=== PATIENT | female | born 1985 | race Hispanic/Latino ===

== ENCOUNTER 2018-08-24 22:00 | Outpatient (CLI) | payer MEDICAID ==
[2018-08-24] MEDS ORDERED: LACTATED RINGERS 500 ML IV ONE (22:42)
[2018-08-24 23:12] LABS: Bacteria,Urine 1+ /HPF (Negative); Bilirubin,Urine NEG (Negative); Blood,Urine LG (Negative); Color,Urine Yellow (Yellow); Mucus,Urine FEW /HPF; Urobilinogen,Urine < 2.0 mg/dL (<2.0)
[2018-08-24 23:14] LABS: WBC,Urine > 182.0 /HPF (0.0-6.0)
[2018-08-25] MEDS ORDERED: XYLOCAINE 1% MPF 5 mL INFILTRATI ONE (00:26)
[2018-08-25] MEDS ORDERED: ROCEPHIN IM ONE (00:27)
== END 2018-08-25 01:50 | disposition home or self-care (01) ==
LOC: EDSTATUS 22:15 → TRG 22:20
PROVIDERS: ATTEND Obstetrics & Gynecology
DX: O26.892 Other specified pregnancy related conditions, second trimester (principal); R31.9 Hematuria, unspecified; R30.9 Painful micturition, unspecified; O11.2 Pre-existing hypertension with pre-eclampsia, second trimester; O99.332 Smoking (tobacco) complicating pregnancy, second trimester; F17.200 Nicotine dependence, unspecified, uncomplicated; Z3A.21 21 weeks gestation of pregnancy
CPT/HCPCS: 81001; 96372; 96374; J0696; J7120; 59025; 96360

== ENCOUNTER 2018-11-15 12:23 | Outpatient (CLI) | payer MEDICAID ==
[2018-11-15 13:36] LABS: Hematocrit 35.7 % (30.3-42.9); Hemoglobin 12.1 gm/dl (10.1-14.3); Mean Corpuscular HGB Conc 34 % (30-34); Mean Corpuscular Volume 96 fl (79-97); Platelet Count 261 K/mm3 (140-440); Red Blood Count 3.73 M/mm3 (3.65-5.03); Red Cell Distribution Width 12.8 % (13.2-15.2)
[2018-11-15 13:53] LABS: Alanine Aminotransferase 12 units/L (7-56); Uric Acid 4.6 mg/dL (3.5-7.6)
[2018-11-15 14:00] LABS: Bacteria,Urine 1+ /HPF (Negative); Bilirubin,Urine NEG (Negative); Blood,Urine NEG (Negative); Color,Urine Amber (Yellow); Mucus,Urine 3+ /HPF
[2018-11-15] MEDS ORDERED: LACTATED RINGERS 1,000 ML IV ONE (15:00)
[2018-11-15] MEDS ORDERED: TYLENOL PO ONE (15:45)
[2018-11-15 16:00] VITALS: BP 137/61
== END 2018-11-15 16:13 | disposition home or self-care (01) ==
LOC: TRG 12:23
PROVIDERS: ATTEND Obstetrics & Gynecology
DX: O26.893 Other specified pregnancy related conditions, third trimester (principal); R51 Headache; H53.8 Other visual disturbances; O47.03 False labor before 37 completed weeks of gestation, third trimester; O99.343 Other mental disorders complicating pregnancy, third trimester; F32.9 Major depressive disorder, single episode, unspecified; O99.333 Smoking (tobacco) complicating pregnancy, third trimester; F17.200 Nicotine dependence, unspecified, uncomplicated; Z3A.33 33 weeks gestation of pregnancy
CPT/HCPCS: 36415; 59025; 81001; 82565; 83615; 84450; 84460; 84550; 85027; 87076; 87086; 87186; 96360; J7120

== ENCOUNTER 2018-12-14 09:28 | Inpatient (IN) | payer MEDICAID ==
[2018-12-14] MEDS ORDERED: REGLAN IV ONE (10:29)
[2018-12-14] MEDS ORDERED: BICITRA PO ONE (10:29)
[2018-12-14] MEDS ORDERED: PEPCID IV ONE (10:29)
--- NOTE | 2018-12-14 10:49 | Anesthesia Consultation ---
Anesthesia Consult and Med Hx Date of service: 12/14/18 - Airway Anesthetic Teeth Evaluation: Poor, Chipped ROM Head & Neck: Adequate Mental/Hyoid Distance: Adequate Mallampati Class: Class III Intubation Access Assessment: Probably Good - Pulmonary Exam CTA: Yes - Cardiac Exam Cardiac Exam: RRR - Pre-Operative Health Status ASA Pre-Surgery Classification: ASA2 Proposed Anesthetic Plan: Spinal - Pulmonary Hx Smoking: Yes (1-11/2 pk per day since 12 yeras old) Hx Asthma: No Hx Respiratory Symptoms: No SOB: No COPD: No Home Oxygen Therapy: No Hx Pneumonia: No Hx Sleep Apnea: No - Cardiovascular System Hx Hypertension: Yes (2010 patient reported "I was diagnosed with HTN and was preeclamptic) Hx Coronary Artery Disease: No Hx Heart Attack/AMI: No Hx Angina: No Hx Percutaneous Transluminal Coronary Angioplasty (PTCA): No Hx Cardia Arrhythmia: No Hx Pacemaker: No Hx Internal Defibrillator: No Hx Valvular Heart Disease: No Hx Heart Murmur: No Hx Peripheral Vascular Disease: No - Central Nervous System Hx Neuromuscular Disorder: No Hx Seizures: Yes (Pt states "I had two seizures in 2001 and 2015") CVA: No Hx Back Pain: No Hx Psychiatric Problems: Yes (Pt states "15 years ago I was put on Welbutrine and Depakote") - Gastrointestinal Hx Ulcer: No Hx Gastroesophageal Reflux Disease: Yes - Endocrine Hx Renal Disease: No Hx End Stage Renal Disease: No Hx Cirrhosis: No Hx Liver Disease: No Hx Insulin Dependent Diabetes: No Hx Non-Insulin Dependent Diabetes: No Hx Thyroid Disease: No Hx Hypothyroidism: No Hx Hyperthyroidism: No - Hematic Hx Anemia: No Hx Sickle Cell Disease: No - Other Systems Hx Alcohol Use: No (history of drinking alcohol - last year 2017) Hx Substance Use: No Hx Cancer: No Hx Obesity: Yes (BMI 32)
--- NOTE | 2018-12-14 10:50 | Anesthesia Day of Surgery ---
Anesthesia Day of Surgery - Day of Surgery Patient Examined: Yes Patient H&P Reviewed: Yes Patient is NPO: Yes Beta Blockers: No Cardiac Clearance: No Pulmonary Clearance: No Santiago's Test: N/A
[2018-12-14] MEDS ORDERED: PITOCin/NS 20 UNIT/1000ML DRIP 20 UNITS/1,000 ML BAG IV SCH ×2 (11:00→15:00)
[2018-12-14] MEDS ORDERED: ANCEF/STERILE WATER 2 GM/20 ML 2 GM/20 ML SYRINGE IV NR (11:00)
[2018-12-14] MEDS: LACTATED RINGERS 1,000 ML IV SCH ×2 (11:25→11:55)
[2018-12-14 11:38] LABS: Basophils % (Auto) 0.4 % (0.0-1.8); Eosinophils # (Auto) 0.1 K/mm3 (0.0-0.4); Eosinophils % (Auto) 0.8 % (0.0-4.3); Hematocrit 34.9 % (30.3-42.9); Hemoglobin 11.8 gm/dl (10.1-14.3); Lymphocytes # (Auto) 2.2 K/mm3 (1.2-5.4); Lymphocytes % (Auto) 22.5 % (13.4-35.0); Mean Corpuscular HGB Conc 34 % (30-34); Mean Corpuscular Volume 94 fl (79-97); Monocytes # (Auto) 0.5 K/mm3 (0.0-0.8); Monocytes % (Auto) 4.6 % (0.0-7.3); Platelet Count 257 K/mm3 (140-440); Red Blood Count 3.71 M/mm3 (3.65-5.03); Red Cell Distribution Width 12.9 % (13.2-15.2)
--- NOTE | 2018-12-14 11:49 | History and Physical Report ---
History of Present Illness Date of examination: 12/14/18 Date of admission: 12/14/18 09:28 Chief complaint: * Elective Repeat Section, Multiparty desiring Permanent Sterilization, CHTN, Tobacco Dependance * * History of present illness: Preop Note: Preop Dx: IUP at term, elective repeat c/section, multiplarity desiring permanent sterilization, CHTN, Tobacco dependance Planned Procedure: Elective Repeat Low-Transverse Section via Pfannenstiel Incision Surgeon: Hanny Ireland MD. Informed consent obtained in OB triage. well being reassuring overall. H&P reviewed and updated. 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 Vital Signs Temp 97.8 F 12/14/18 11:39 Pulse 82 12/14/18 11:42 Resp 20 12/14/18 11:39 BP 129/66 12/14/18 11:39 Pulse Ox 99 12/14/18 11:42 Intake & Output 12/13/18 12/13/18 12/14/18 11:59 23:59 11:59 Weight 107.048 kg RRR LCTAB ABD: soft, NT, no rebound or guarding. FH 39cm, well healed pfannenstiel incision Ext: no edema, negative Flavio's sign bilaterally Laboratory Results - last 24 hr 12/14/18 11:05 WBC 10.0 RBC 3.71 Hgb 11.8 Hct 34.9 MCV 94 MCH 32 MCHC 34 RDW 12.9 L Plt Count 257 Lymph % (Auto) 22.5 [place] % (Auto) 4.6 Eos % (Auto) 0.8 Baso % (Auto) 0.4 Lymph # 2.2 [place] # 0.5 Eos # 0.1 Baso # 0.0 Seg Neutrophils % 71.7 H Seg Neutrophils # 7.1 Dr Hanny Ireland Past History - Obstetrical History : 2 Medications and Allergies Allergies Allergy/AdvReac Type Severity Reaction Status Date / Time No Known Allergies Allergy Verified 11/15/18 13:01 Home Medications Medication Instructions Recorded Confirmed Last Taken Type No Known Home Medications [No 11/15/18 11/15/18 Unknown History Reported Home Medications] Active Meds: Active Medications Cefazolin Sodium (Ancef/Sterile Water 2 Gm/20 Ml) 2 gm in 20 mls @ 80 mls/hr IV PREOP NR; Protocol Stop: 12/14/18 23:59 Oxytocin/Sodium Chloride (Pitocin/Ns 20 Unit/1000ml Drip) 20 units in 1,000 mls @ 0 mls/hr IV TITR HEMALATHA Lactated Ringer's (Lactated Ringers) 1,000 mls @ 2,250 mls/hr IV PREOP HEMALATHA Stop: 12/15/18 11:27 Last Admin: 12/14/18 11:25 Dose: 2,250 mls/hr Documented by: - Vital Signs Vital signs: Vital Signs Pulse Pulse Ox 85 97 12/14/18 10:17 12/14/18 10:17 Temp Pulse Resp BP Pulse Ox 97.8 F 74 20 129/66 97 12/14/18 11:39 12/14/18 11:39 12/14/18 11:39 12/14/18 11:39 12/14/18 11:39 Results Result Diagrams: 12/14/18 11:05 Abnormal lab results 12/14/18 Range/Units 11:05 RDW 12.9 L (13.2-15.2) % Seg Neutrophils % 71.7 H (40.0-70.0) % All other labs normal.
[2018-12-14] MEDS ORDERED: DEXMEDETOMIDINE IV ONE (12:32)
[2018-12-14] MEDS ORDERED: WATER FOR IRRIG STERILE IR ONE (13:00)
[2018-12-14] MEDS ORDERED: NACL 0.9% IR ONE ×2 (13:00)
[2018-12-14] MEDS ORDERED: TORADOL ONE (13:01)
[2018-12-14] MEDS ORDERED: ZOFRAN ONE (13:01)
[2018-12-14] MEDS ORDERED: KETAMINE 50 MG/ML-WATER SYRING ONE (13:18)
[2018-12-14] MEDS ORDERED: DILAUDID ONE (13:51)
[2018-12-14] MEDS ORDERED: NARCAN 0.4 MG/1 ML IV PRN (14:08)
[2018-12-14] MEDS ORDERED: MYLICON PO PRN (14:08)
[2018-12-14] MEDS ORDERED: TORADOL IV PRN (14:08)
[2018-12-14] MEDS ORDERED: PHENERGAN PR PRN (14:08)
[2018-12-14] MEDS ORDERED: ANUCORT-HC PR PRN (14:08)
[2018-12-14] MEDS ORDERED: ZOFRAN IV PRN (14:08)
[2018-12-14] MEDS ORDERED: MORPHINE IV PRN (14:08)
[2018-12-14] MEDS ORDERED: TUCKS PAD TP PRN (14:08)
[2018-12-14] MEDS ORDERED: LANSINOH TP PRN (14:08)
--- NOTE | 2018-12-14 14:23 | Post Anesthesia Evaluation ---
- Post Anesthesia Evaluation Patient Participated: Yes Airway Patent: Yes Stable Respiratory Function: Yes Nausea/Vomiting: No Temp > 96.8F: Yes Pain Manageable: Yes Adequeate Hydration: Yes Anesthesia Complications: No Block Receding Appropriately: Yes Patient on Ventilator: No
--- NOTE | 2018-12-14 14:23 | Procedure Note ---
OB Delivery Note - Section Preop diagnosis: desires sterilization Postop diagnosis: same section procedure: repeat low transverse, bilateral tubal ligation Disposition: PACU Complications: intra-op hemorrhage Narrative: Preop Diagnosis: ERCS at term, desires permanent sterilization, CHTN, Tobacco Dependence Postop Dx: same Procedure: Low transverse section with mid-uterine "T" extension, Modified [place] Bilateral Tubal Ligation Surgeon: Hanny Ireland MD Assist: Scrub Findings: viable male, Weight 2997gms, 8,9. Normal Uterus, tubas and ovaries bilaterally. Dense Pelvic adhesions noted, Dense uterine scar encountered making delivery of baby in Direct OA position difficult. Uterus was extended in a midline "T" configuration to allow for delivery, Intraoperative Hemorrhage noted second to uterine extension. EBL 1300ml Urine Output 200ml Fluids 1200ml Drains: Sant[place] to [place] Patient hemodynamically Stable to postop, Stat CBC ordered in Postop. Jamel ABEBE
[2018-12-14] MEDS ORDERED: SODIUM CHLORIDE FLUSH SYRINGE 10 ML IV NR (15:00)
[2018-12-14] MEDS ORDERED: D5LR 1,000 ML IV SCH (15:00)
[2018-12-14 15:06] LABS: Basophils # (Auto) 0.1 K/mm3 (0.0-0.1); Basophils % (Auto) 0.4 % (0.0-1.8); Eosinophils # (Auto) 0.1 K/mm3 (0.0-0.4); Eosinophils % (Auto) 0.6 % (0.0-4.3); Hematocrit 32.1 % (30.3-42.9); Hemoglobin 10.6 gm/dl (10.1-14.3); Lymphocytes # (Auto) 2.2 K/mm3 (1.2-5.4); Lymphocytes % (Auto) 15.7 % (13.4-35.0); Mean Corpuscular HGB Conc 33 % (30-34); Mean Corpuscular Volume 95 fl (79-97); Monocytes # (Auto) 0.5 K/mm3 (0.0-0.8); Monocytes % (Auto) 3.6 % (0.0-7.3); Platelet Count 229 K/mm3 (140-440); Red Blood Count 3.39 M/mm3 (3.65-5.03); Red Cell Distribution Width 13.2 % (13.2-15.2)
[2018-12-14] MEDS ORDERED: SENOKOT PO PRN (22:00)
[2018-12-14] MEDS ORDERED: MILK OF MAGNESIA PO PRN (22:00)
[2018-12-14] MEDS: NORCO 5/325 PO PRN (23:05)
[2018-12-14] MEDS: TORADOL IV PRN (23:12)
[2018-12-15 01:25] LABS: Hematocrit 28.1 % (30.3-42.9); Hemoglobin 9.4 gm/dl (10.1-14.3)
--- NOTE | 2018-12-15 06:19 | Operative Report ---
Operative Report Operative Report: Preoperative diagnosis: IUP at 37+ weeks, previous sectionx1, CHTN, Tobacco Dependence, Multiparty Desires Permanent sterilization Postoperative diagnosis: same Procedure: Elective Repeat Low Transverse section via Pfannenstiel incision with a uterine "T" midline extension, Bilateral Modified [place] Tubal Ligation Surgeon: Dr Hanny Ireland Assist: Scrub Anesthesia: Spinal Findings: viable male, 2997gms, 8,9. Normal uterus, tubes and ovaries bilaterally.Dense Pelvic adhesions. Uterine scarring at incision site making delivery of vertex difficult.Uterus was extended in a midline "T" configuration to allow for delivery, Intraoperative Hemorrhage noted second to uterine extension. EBL: 1300ml IV Fluids:1200ml Urine Output:200ml clear urine Complications: Dense abdomino-pelvic adhesions, dense uterine scar making delivery of vertex difficult. Procedure: Patient gave informed consent in OB triage. All questions and concerns addressed. R/B/C reviewed. She was taken to the OR where she received excellent spinal anesthesia. She was placed in the dorsal supine position with a leftward tilt. She was prepped and draped in a sterile fashion. A time out was verified. A pfannenstiel skin incision was made, taken down through the underlying fascia sharply and extended laterally with curved Zapata scissors. The superior and inferior aspect of the fascial incision was grasped with Anuj clamps and the rectus muscles dissected off sharply. The abdomen was entered sharply in the midline and extended laterally and inferiorly sharply with good visualization of the underlying structures. Dense adhesions were noted and taken down sharply. A bladder blade was inserted. The uterine incision was made sharply with a scalpel,noted to be thick scar tissue from previous procedure with little give when blunt extension was attempted. The uterine incision was taken down to the amnion and delivery of the vertex attempted. Encountering resistance, A KIWI was called for and I extended the uterine incision in the midline in a "T" fashion approx. 3 cm extending from the original hysterotomy. The bladder blade removed and the baby delivered atraumatically. No nuchal cord, spontaneous cry at delivery. Cord clamped and cut and baby handed to waiting regulatory affairs spec staff. An intact placenta with three vessel cord delivered manually. The uterus cleared of all clots and debris. The uterus was exteriorized. The uterine incision closed with 3 layers of 0-vicryl with excellent hemostasis. The Uterine Extension closed in two layers of 0- vicryl. The abdomen was irrigated with warm normal saline and the uterus placed back into the abdomen. Procoagulant materials placed on the uterine incision. A second look at the uterine incision assured hemostasis. The peritoneum was closed with 3-0 vicryl, the fascia closed with 0-vicryl in the usual fashion and the subcuticular structures closed with 0-vicryl. The skin closed with sindhu and a pressure dressing applied. All sponge and needle counts correctx2. Mom and baby stable to . EBL 1300ml. Intraoperative CBC sent STAT. Patient remained hemodynamically stable throughout procedure. Jamel ABEBE
[2018-12-15] MEDS: NORCO 5/325 PO PRN ×2 (06:20→15:10)
[2018-12-15] MEDS: TORADOL IV PRN (06:20)
--- NOTE | 2018-12-15 10:46 | Progress Note ---
Assessment and Plan A: /postop day 1 S/P repeat low transverse section with a uterine T midline extension and BTL. Anemia secondary to blood loss and . Chronic hypertension. P: Advance diet to regular as tolerated. Recheck hemoglobin and hematocrit. Iron supplementation. Encouraged ambulation. Subjective - Subjective Date of service: 12/15/18 Principal diagnosis: /postop day 1 S/P repeat C/S Interval history: /postop day 1 S/P repeat low transverse section with a uterine T midline extension and BTL. Chronic hypertension. Patient is ambulating well, voiding without difficulty, tolerating liquid diet, and passing gas. She plans to eat a regular diet for lunch today. Patient reports small amount of lochia and no clots. Patient denies headache, chest pain, cough, shortness of breath, abdominal pain, leg pain, dizziness, nausea or vomiting, or heavy bleeding. Patient reports: appetite normal, voiding normally, pain well controlled, flatus, ambulating normally, no dizzy ambulation, no nauseated : doing well Objective - Vital Signs Latest vital signs: Vital Signs Temp Pulse Resp BP BP Pulse Ox 12/15/18 08:59 97.9 F 18 126/53 12/15/18 08:00 97.3 F L 81 18 126/53 12/15/18 06:20 18 12/15/18 05:12 98.4 F 81 22 134/62 12/15/18 01:26 98.1 F 71 22 133/71 98 12/14/18 23:42 18 12/14/18 23:12 18 12/14/18 23:05 18 12/14/18 20:47 98.4 F 24 116/65 12/14/18 16:01 97.5 F L 60 18 108/57 100 12/14/18 16:00 97.5 F L 68 16 108/57 97 12/14/18 15:30 55 L 11 L 100/57 96 12/14/18 15:15 98.0 F 55 L 12 99/55 95 12/14/18 15:00 59 L 12 103/63 97 12/14/18 14:45 56 L 12 103/58 95 12/14/18 14:30 66 15 119/64 95 12/14/18 14:25 56 L 11 L 103/51 96 12/14/18 14:20 99.3 F 68 13 115/64 97 12/14/18 14:14 99.3 F 70 18 111/65 97 12/14/18 12:22 78 98 12/14/18 12:19 79 94 12/14/18 12:17 85 98 12/14/18 12:12 81 97 12/14/18 12:07 77 98 12/14/18 12:04 77 130/77 12/14/18 12:02 74 99 12/14/18 11:57 86 97 12/14/18 11:52 76 97 12/14/18 11:50 75 131/65 12/14/18 11:47 75 98 12/14/18 11:42 82 99 12/14/18 11:39 97.8 F 74 20 129/66 97 12/14/18 11:37 88 98 12/14/18 11:35 80 129/66 12/14/18 11:32 80 98 12/14/18 11:27 76 97 12/14/18 11:22 87 98 12/14/18 11:19 79 134/91 12/14/18 11:17 85 98 12/14/18 11:12 80 97 12/14/18 11:07 87 97 12/14/18 11:04 80 124/64 12/14/18 11:02 84 97 12/14/18 10:57 84 98 12/14/18 10:52 84 96 12/14/18 10:49 81 123/68 12/14/18 10:47 83 96 Intake and Output 12/14/18 12/15/18 12/15/18 23:59 07:59 15:59 Output Total 600 Balance -600 Output: Urine 600 Void 600 Other: Total, Output Amount 600 # Voids Void 1 - Exam Cardiovascular: Present: Regular rate, Normal S1, Normal S2, No murmurs Lungs: Present: Clear to auscultation Abdomen: Present: normal appearance, soft, normal bowel sounds. Absent: distention, tenderness, guarding, rigidity Uterus: Present: normal, firm, fundal height below umbilicus. Absent: boggi ness, tenderness Extremities: Present: normal, edema (mild pedal edema bilaterally). Absent: tenderness Incision: Present: normal, dry, dressed - Labs Labs: Abnormal lab results 09/12/14/18 12/14/18 Range/Units 11:05 13:32 14:50 WBC 14.2 H (4.5-11.0) K/mm3 RBC 3.39 L (3.65-5.03) M/mm3 Hgb (10.1-14.3) gm/dl Hct (30.3-42.9) % RDW 12.9 L (13.2-15.2) % Seg Neutrophils % 71.7 H 79.7 H (40.0-70.0) % Seg Neutrophils # 11.4 H (1.8-7.7) K/mm3 POC ABG pH 7.324 L (7.35-7.45) 12/15/18 Range/Units 00:54 WBC (4.5-11.0) K/mm3 RBC (3.65-5.03) M/mm3 Hgb 9.4 L (10.1-14.3) gm/dl Hct 28.1 L (30.3-42.9) % RDW (13.2-15.2) % Seg Neutrophils % (40.0-70.0) % Seg Neutrophils # (1.8-7.7) K/mm3 POC ABG pH (7.35-7.45)
[2018-12-15] MEDS: IBUPROFEN PO PRN (12:24)
[2018-12-16] MEDS: IBUPROFEN PO PRN ×3 (00:13→18:32)
[2018-12-16] MEDS: NORCO 5/325 PO PRN ×3 (00:16→18:35)
[2018-12-16 07:21] LABS: Hematocrit 25.8 % (30.3-42.9); Hemoglobin 8.9 gm/dl (10.1-14.3)
[2018-12-16] MEDS ORDERED: FEOSOL PO SCH (10:00)
--- NOTE | 2018-12-16 15:50 | Progress Note ---
Assessment and Plan A: day 2 S/P repeat low transverse section with T shaped midline extension and BTL. Chronic hypertension. Anemia secondary to and blood loss. P: Continue iron supplementation. Continue current management. Subjective - Subjective Date of service: 12/16/18 Principal diagnosis: /postop day 2 S/P repeat C/S Interval history: /postop day 2 S/P repeat low transverse section with a uterine T midline extension and BTL. Chronic hypertension. Patient is ambulating well, voiding without difficulty, tolerating regular diet, and passing gas. Patient reports small amount of lochia and no clots. Patient denies headache, chest pain, cough, shortness of breath, abdominal pain, leg pain, dizziness, nausea or vomiting, or heavy bleeding. Patient reports: appetite normal, voiding normally, pain well controlled, flatus, ambulating normally, no dizzy ambulation, no nauseated [place]: doing well Objective - Vital Signs Latest vital signs: Vital Signs Temp Pulse Resp BP Pulse Ox 12/16/18 07:24 97.8 F 79 18 118/77 99 12/16/18 06:50 18 12/16/18 06:49 18 12/16/18 05:50 18 12/16/18 05:49 18 12/16/18 02:29 97.8 F 76 18 115/61 98 12/16/18 01:16 18 12/16/18 01:13 18 12/16/18 00:16 18 12/16/18 00:13 18 Intake and Output 12/15/18 12/16/18 12/16/18 23:59 07:59 15:59 Intake Total 560 480 Balance 560 480 Intake: Oral 380 Intake, Free Water 180 480 Other: Total, Intake Amount 380 # Voids Void 2 2 # Bowel Movements 0 - Exam Cardiovascular: Present: Regular rate, Normal S1, Normal S2, No murmurs Lungs: Present: Clear to auscultation Abdomen: Present: normal appearance, soft, normal bowel sounds. Absent: distention, tenderness, guarding, rigidity Uterus: Present: normal, firm, fundal height below umbilicus. Absent: bogginess, tenderness Extremities: Present: normal, edema (mild pedal edema bilaterally). Absent: tenderness Incision: Present: normal, dry, intact - Labs Labs: Abnormal lab results 09/15/19 Range/Units 06:32 Hgb 8.9 L (10.1-14.3) gm/dl Hct 25.8 L (30.3-42.9) %
[2018-12-17] MEDS: NORCO 5/325 PO PRN (01:03)
[2018-12-17] MEDS: IBUPROFEN PO PRN (09:57)
[2018-12-17] MEDS ORDERED: FEOSOL PO SCH (10:00)
--- NOTE | 2018-12-17 10:35 | Progress Note ---
Assessment and Plan - Patient Problems (1) S/P repeat low transverse Current Visit: Yes Status: Acute Plan to address problem: POD 3 - stable Discharge to home today Follow up at [facility] as needed or in 1 week for sindhu removal and incision check (2) Status post tubal ligation Current Visit: Yes Status: Acute (3) Anemia due to blood loss, acute Current Visit: Yes Status: Acute Plan to address problem: Asymptomatic Continue iron therapy (4) Chronic hypertension Current Visit: Yes Status: Acute Plan to address problem: Asymptomatic BPs stable Continue home blood pressure medication Subjective - Subjective Date of service: 12/17/18 Principal diagnosis: POD #3; s/p Repeat LTCS w/BTL, CHTN Interval history: see H&P, OB Delivery Procedure Note, Operative Report and PP/[employer] Progress Note Patient reports: appetite normal, voiding normally, pain well controlled, flatus, ambulating normally, other (denies headache, visual disturbances or RUQ pain), no dizzy ambulation : doing well, nursing well Objective - Vital Signs Latest vital signs: Vital Signs Temp Pulse Resp BP Pulse Ox 12/17/18 10:00 97.5 F L 12/17/18 07:34 100.0 F H 76 16 132/81 99 12/17/18 00:21 98.5 F 79 14 135/79 97 12/16/18 18:26 98.4 F 12/16/18 17:16 90 142/84 98 - Exam Cardiovascular: Present: Regular rate Lungs: Present: Clear to auscultation, Normal air movement Abdomen: Present: normal appearance, soft Vulva: both: normal Uterus: Present: normal, firm, fundal height at umbilicus Extremities: Present: normal Incision: Present: normal, dry, intact, other (sindhu in place) Comments: scant lochia
--- NOTE | 2018-12-17 10:46 | Discharge Summary ---
Providers - Providers Date of Admission: 12/14/18 09:28 Date of discharge: 12/17/18 Attending physician: PRANAY VASQUEZ MD Primary care physician: [employer] Hospitalization Reason for admission: section, IUP at term Delivery: Procedure: bilateral tubal ligation, repeat low transverse Episiotomy: none Laceration: none Incision: normal, dry, intact, other (sindhu in place) Other procedures: tubal ligation complications: none Discharge diagnosis: IUP at term delivered baby: male Hospital course: Uncomplicated Condition at discharge: Stable Disposition: DC-01 TO HOME OR SELFCARE - Discharge Diagnoses (1) S/P repeat low transverse Status: Acute (2) Status post tubal ligation Status: Acute (3) Anemia due to blood loss, acute Status: Acute Comment: Continue iron therapy Encouraged iron-rich foods (4) Chronic hypertension Status: Acute Comment: Continue home blood pressure medication Reviewed signs and symptoms of Superimposed Pre-eclampsia Plan - Discharge Medications Prescriptions: Ferrous Sulfate [Feosol 325 MG tab] 325 mg PO BID #60 tablet Ibuprofen [Motrin 800 MG tab] 800 mg PO Q6H PRN #30 tablet PRN Reason: Pain, Mild (1-3) - Provider Discharge Summary Activity: routine, no sex for 6 weeks, no heavy lifting 4 weeks, no strenuous exercise Diet: routine Instructions: routine Additional instructions: [] Smoking cessation referral if applicable(refer to patient education folder for contact #) [] Refer to [facility] Booklet Call your doctor immediately for: * Fever > 100.5 * Heavy vaginal bleeding ( >1 pad per hour) * Severe persistent headache * Shortness of breath * Reddened, hot, painful area to leg or breast * Drainage or odor from incision. * Keep incision clean and dry at all times and follow doctor's instructions regarding bathing/showering - Follow up plan Follow up: PRIMARY CARE, [Primary Care Provider] - 7 Days (Follow up at [facility] as needed or in 1 week for sindhu removal and incision check) Forms: [facility] Discharge Summary
[2018-12-17 12:42] VITALS: BP 145/85
== END 2018-12-17 12:25 | disposition home or self-care (01) | DRG 765 ==
LOC: APU 09:28 → OB 16:24
PROVIDERS: ADMIT Obstetrics & Gynecology; ATTEND Obstetrics & Gynecology
PROC: 10D00Z1 Extraction of Products of Conception, Low, Open Approach (ICD-10-PCS; principal; 2018-12-14)
PROC: 0UB70ZZ Excision of Bilateral Fallopian Tubes, Open Approach (ICD-10-PCS; 2018-12-14)
PROC: 4A033R1 Measurement of Arterial Saturation, Peripheral, Percutaneous Approach (ICD-10-PCS; 2018-12-14)
DX: O34.211 Maternal care for low transverse scar from previous cesarean delivery (principal); O10.02 Pre-existing essential hypertension complicating childbirth; D62 Acute posthemorrhagic anemia; O72.1 Other immediate postpartum hemorrhage; Z3A.37 37 weeks gestation of pregnancy; Z37.0 Single live birth; N73.6 Female pelvic peritoneal adhesions (postinfective); F17.210 Nicotine dependence, cigarettes, uncomplicated; K21.9 Gastro-esophageal reflux disease without esophagitis; E66.9 Obesity, unspecified; O99.334 Smoking (tobacco) complicating childbirth; O99.62 Diseases of the digestive system complicating childbirth; O99.214 Obesity complicating childbirth
CPT/HCPCS: 36415; 82803; 85014; 85018; 85025; 86592; 86850; 86900; 86901; 88302; G0378; A6250; C1765; C9250; J0690; J1170; J1885; J2405; J2590; J2765; J3490; J7120

== ENCOUNTER 2019-02-15 15:22 | Emergency (ER) | payer MEDICAID ==
--- NOTE | 2019-02-15 15:47 | Event Note ---
ED Screening Note Date of service: 02/15/19 Time: 15:39 ED Screening Note: 33 year old female presents 9 weeks post ccof depression Teenage hx of depression no current meds admits SI with no plan OB visit and was told to come to ER This initial assessment/diagnostic orders/clinical plan/treatment(s) is/are subject to change based on patients health status, clinical progression and re- assessment by fellow clinical providers in the ED. Further treatment and workup at subsequent clinical providers discretion. Patient/guardian urged not to elope from the ED as their condition may be serious if not clinically assessed and managed. Initial orders include: labs Main side eval
--- NOTE | 2019-02-15 16:26 | Emergency Department Report ---
<AQUILESSophiaKODY WARD A - Last Filed: 02/15/19 16:48> ED Psych HPI - General Chief Complaint: Psych Stated Complaint: DEPRESSION Time Seen by Provider: 02/15/19 16:25 Source: patient Mode of arrival: Ambulatory - History of Present Illness Initial Comments: 33 yo comes to ER with depression post . Sad, tearful, emotional and angry. [facility] and they recommended she come here for eval. pt thinks of harming herself at time but has no plan she has not cut or done any acts of harm to self or others. no HI no a/v hallucination. Lives with boyfriend. 2 kids. no family in the area. pos TCH and cig use occ etoh pmh htn with preg- on labetolol but not taking now She delivered her child 9-13. Pt did have MD as a teen and was hospitalized twice. At that time she was cutting. [facility] Complaint: suicidal ideation, feels depressed -: Gradual, week(s) Associated Psychiatric Symptoms: depression, suicidal ideation History of same: Yes Quality: intermittent Worsens With: none Associated Symptoms: denies other symptoms Treatments Prior to Arrival: none If Self Harm: admits thoughts of - Related Data Previous Rx's Medication Instructions Recorded Last Taken Type Ferrous Sulfate [Feosol 325 MG tab] 325 mg PO BID #60 tablet 12/17/18 Unknown Rx HYDROcodone/APAP 5-325 [[place] 1 each PO Q6HR PRN #30 tablet 12/17/18 Unknown Rx 5/325] Ibuprofen [Motrin 800 MG tab] 800 mg PO Q6H PRN #30 tablet 12/17/18 Unknown Rx Allergies Allergy/AdvReac Type Severity Reaction Status Date / Time No Known Allergies Allergy Verified 11/15/18 13:01 ED Review of Systems Comment: All other systems reviewed and negative ED Past Medical Hx - Past Medical History Previous Medical History?: Yes Hx Hypertension: Yes (2010 patient reported "I was diagnosed with HTN and was preeclamptic) Hx Heart Attack/AMI: No Hx Congestive Heart Failure: No Hx Diabetes: No Hx Deep Vein Thrombosis: No Hx Liver Disease: No Hx Renal Disease: No Hx Sickle Cell Disease: No Hx Seizures: Yes (Pt states "I had two seizures in 2001 and 2015") Hx Asthma: No Hx COPD: No Hx HIV: No - Surgical History Past Surgical History?: Yes Hx Pacemaker: No Hx Internal Defibrillator: No Additional Surgical History: . cyst removal. T&A - Family History Family history: no significant - Social History Smoking Status: Never Smoker - Medications Home Medications: Home Medications Medication Instructions Recorded Confirmed Last Taken Type Ferrous Sulfate [Feosol 325 MG tab] 325 mg PO BID #60 tablet 12/17/18 Unknown Rx HYDROcodone/APAP 5-325 [[place] 1 each PO Q6HR PRN #30 tablet 12/17/18 Unknown Rx 5/325] Ibuprofen [Motrin 800 MG tab] 800 mg PO Q6H PRN #30 tablet 12/17/18 Unknown Rx ED Physical Exam - General Limitations: No Limitations General appearance: alert, in no apparent distress - Head Head exam: Present: atraumatic, normocephalic - Eye Eye exam: Present: normal appearance - ENT ENT exam: Present: mucous membranes moist - Neck Neck exam: Present: normal inspection - Respiratory Respiratory exam: Present: normal lung sounds bilaterally. Absent: respiratory distress - Cardiovascular Cardiovascular Exam: Present: regular rate, normal rhythm. Absent: systolic murmur, diastolic murmur, rubs, gallop - GI/Abdominal GI/Abdominal exam: Present: soft, normal bowel sounds - Extremities Exam Extremities exam: Present: normal inspection - Back Exam Back exam: Present: normal inspection - Neurological Exam Neurological exam: Present: alert, oriented X3 - Psychiatric Psychiatric exam: Present: normal affect, normal mood - Skin Skin exam: Present: warm, dry, intact, normal color. Absent: rash ED Medical Decision Making - Lab Data Result diagrams: 02/15/19 16:21 - Medical Decision Making a/c post SI with no plan cooperative on exam; 1630 PLAN MEDICALLY CLEAR MONITOR BP- resume home labetolol MHE EVAL AND DISPO PER THEIR RECS. Lab Results 02/15/19 02/15/19 Range/Units 16:21 16:21 WBC 7.1 (4.5-11.0) K/mm3 RBC 4.56 (3.65-5.03) M/mm3 Hgb 13.9 (10.1-14.3) gm/dl Hct 42.2 (30.3-42.9) % MCV 93 (79-97) fl MCH 31 (28-32) pg MCHC 33 (30-34) % RDW 14.6 (13.2-15.2) % Plt Count 281 (140-440) K/mm3 Lymph % (Auto) 39.0 H (13.4-35.0) % [place] % (Auto) 5.9 (0.0-7.3) % Eos % (Auto) 5.9 H (0.0-4.3) % Baso % (Auto) 1.4 (0.0-1.8) % Lymph # 2.8 (1.2-5.4) K/mm3 [place] # 0.4 (0.0-0.8) K/mm3 Eos # 0.4 (0.0-0.4) K/mm3 Baso # 0.1 (0.0-0.1) K/mm3 Seg Neutrophils % 47.8 (40.0-70.0) % Seg Neutrophils # 3.4 (1.8-7.7) K/mm3 Sodium 140 (137-145) mmol/L Potassium 4.3 (3.6-5.0) mmol/L Chloride 104.3 (98-107) mmol/L Carbon Dioxide 23 (22-30) mmol/L Anion Gap 17 mmol/L BUN 9 (7-17) mg/dL Creatinine 0.8 (0.7-1.2) mg/dL Estimated GFR > 60 ml/min BUN/Creatinine Ratio 11 % Glucose 89 (65-100) mg/dL Calcium 9.5 (8.4-10.2) mg/dL Vital Signs 02/15/19 15:40 Temperature 97.4 F L Pulse Rate 93 H Respiratory 18 Rate Blood Pressure 156/100 O2 Sat by Pulse 100 Oximetry - Differential Diagnosis md/post with SI, no plan ED Disposition Clinical Impression: Suicidal ideation Depression Qualifiers: Depression Type: unspecified Qualified Code(s): F32.9 - Major depressive disorder, single episode, unspecified Is pt being admited?: No Does the pt Need Aspirin: No Condition: Stable Time of Disposition: 16:28 <JAVIER VALENTE III - Last Filed: 02/15/19 23:23> ED Review of Systems ROS: Stated complaint: DEPRESSION Other details as noted in HPI ED Course Vital Signs 02/15/19 02/15/19 02/15/19 15:40 17:30 18:00 Temperature 97.4 F L Pulse Rate 93 H 68 Respiratory 18 Rate Blood Pressure 156/100 Blood Pressure 154/100 129/73 [Left] O2 Sat by Pulse 100 100 Oximetry - Reevaluation(s) Reevaluation #1: I reviewed the mid-level's note and the patient complained of suicidal thoughts and possible depression and depressive symptoms. Patient placed on a 1013. 02/15/19 20:03 Reevaluation #2: I discussed with patient the plan of care and 1013. Patient states that she is only having thoughts of suicide but would never act on it and wants to go home. I discussed with the patient the need to be evaluated by our psychiatry and mental health evaluators. 02/15/19 23:21 ED Medical Decision Making - Lab Data Result diagrams: 02/15/19 16:21 02/15/19 16:21 Critical care attestation.: If time is entered above; I have spent that time in minutes in the direct care of this critically ill patient, excluding procedure time. ED Disposition Is pt being admited?: No Does the pt Need Aspirin: No
[2019-02-15 16:35] LABS: Basophils # (Auto) 0.1 K/mm3 (0.0-0.1); Basophils % (Auto) 1.4 % (0.0-1.8); Eosinophils # (Auto) 0.4 K/mm3 (0.0-0.4); Eosinophils % (Auto) 5.9 % (0.0-4.3); Hematocrit 42.2 % (30.3-42.9); Hemoglobin 13.9 gm/dl (10.1-14.3); Lymphocytes # (Auto) 2.8 K/mm3 (1.2-5.4); Mean Corpuscular HGB Conc 33 % (30-34); Mean Corpuscular Volume 93 fl (79-97); Monocytes # (Auto) 0.4 K/mm3 (0.0-0.8); Monocytes % (Auto) 5.9 % (0.0-7.3); Platelet Count 281 K/mm3 (140-440); Red Blood Count 4.56 M/mm3 (3.65-5.03); Red Cell Distribution Width 14.6 % (13.2-15.2)
[2019-02-15 16:48] LABS: BUN/Creatinine Ratio 11; Blood Urea Nitrogen 9 mg/dL (7-17); Calcium 9.5 mg/dL (8.4-10.2); Hemolysis Index 6
[2019-02-15 17:51] LABS: Bacteria,Urine 1+ /HPF (Negative); Bilirubin,Urine NEG (Negative); Blood,Urine NEG (Negative); Color,Urine Yellow (Yellow); Mucus,Urine FEW /HPF; Protein,Urine <15 mg/dL mg/dL (Negative); Urobilinogen,Urine < 2.0 mg/dL (<2.0)
[2019-02-15 17:53] LABS: Amphetamine Screen,Urine PRESUMPTIVE NEGATIVE; Benzodiazepines Screen,Urine PRESUMPTIVE NEGATIVE; Cocaine Screen,Urine PRESUMPTIVE NEGATIVE; Methadone Screen,Urine PRESUMPTIVE NEGATIVE; Opiate Screen,Urine PRESUMPTIVE NEGATIVE
[2019-02-15 18:37] LABS: Cannabinoid Screen,Urine PRESUMPTIVE POSITIVE
[2019-02-15] MEDS ORDERED: NICOTINE 14 MG/24 HR PATCH TD ONE (21:30)
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
[2019-02-16 22:15] VITALS: BP 142/87
--- NOTE | 2019-02-16 22:26 | Emergency Department Report ---
Blank Doc - Documentation Documentation: Pt seen and evaluated by psychiatrist. 1013 rescinded. I spoke with pt, she is not suicidal or homicidal. Eager to see her baby. Pt has received outpt resources for follow-up. Will discharge home.
== END 2019-02-16 22:55 | disposition home or self-care (01) ==
LOC: ED 15:22
DX: F32.9 Major depressive disorder, single episode, unspecified (principal); I10 Essential (primary) hypertension; Z79.1 Long term (current) use of non-steroidal anti-inflammatories (NSAID); Z79.899 Other long term (current) drug therapy
CPT/HCPCS: 36415; 80048; 80307; 80320; 81001; 84443; 84703; 85025; 99284; G0480